=== PATIENT | female | born 1950 | race Hispanic/Latino ===

== ENCOUNTER 2017-08-17 09:03 | Emergency (ER) | payer MEDICARE, MEDICAID ==
[2017-08-17] MEDS ORDERED: Dexamethasone 4 mg/ml Vial ONE (09:37)
== END 2017-08-17 10:34 | disposition home or self-care (01) ==
LOC: NAV ERS 09:03
DX: J20.9 Acute bronchitis, unspecified (principal); B35.3 Tinea pedis; E11.9 Type 2 diabetes mellitus without complications; F32.9 Major depressive disorder, single episode, unspecified; J44.9 Chronic obstructive pulmonary disease, unspecified; Z87.891 Personal history of nicotine dependence; Z79.84 Long term (current) use of oral hypoglycemic drugs; Z79.52 Long term (current) use of systemic steroids; Z79.899 Other long term (current) drug therapy
CPT/HCPCS: 96372; J1100; J7620

== ENCOUNTER 2019-11-25 12:30 | Outpatient (CLI) | payer MEDICARE, MEDICAID ==
--- NOTE | 2019-11-25 12:44 | RAD ---
XR Chest Pa Lat STANDARD HISTORY: Cough and bronchitis COMPARISON: 08/03/2009 study. FINDINGS: Heart size appears slightly enlarged with atherosclerotic changes of the aorta. The lungs a re clear of any infiltrative process. There are arthritic changes of the spine. IMPRESSION: Mild cardiomegaly.
== END 2019-11-25 12:31 | disposition home or self-care (01) ==
LOC: NAV RAD 12:30
PROVIDERS: ATTEND Family Medicine
DX: J40 Bronchitis, not specified as acute or chronic (principal); I51.7 Cardiomegaly
CPT/HCPCS: 71046

== ENCOUNTER 2021-12-17 08:06 | Emergency (ER) | payer MEDICARE, OTHER ==
[2021-12-17 09:14] LABS: #Basophils 0.1 thou/uL (0.0-0.2); #Eosinphils 0.6 thou/uL (0.0-0.7); #Monocytes 0.6 thou/uL (0.11-0.59); #Neutrophils 4.1 thou/uL (1.40-6.50); %Basophils 0.8 % (0.0-1.0); %Eosinophils 8.2 % (0.0-10.0); %Lymphocytes 26.7 % (21.0-51.0); %Monocytes 8.3 % (0.0-10.0); %Neutrophils 56.1 % (42.0-75.0); Hemoglobin 13.7 g/dL (12.0-16.0); Mean Corpuscular HGB CONC 32.3 g/dL (32.0-36.0); Mean Corpuscular Hemoglobin 32.2 pg (27.0-31.0); Mean Corpuscular Volume 99.4 fL (78.0-98.0); Mean Platelet Volume 6.8 fL (7.4-10.4); Platelet Count 168 thou/uL (130-400); RBC Distribution Width 12.3 % (11.5-14.5); Red Blood Cell (RBC) Count 4.27 mill/uL (4.20-5.40); White Blood Cell (WBC) Count 7.3 thou/uL (4.8-10.8)
[2021-12-17 09:29] LABS: ALT (SGPT) 12 U/L (8-55); AST (SGOT) 23 U/L (5-34); Albumin 3.7 g/dL (3.4-4.8); Alkaline Phosphatase 81 U/L (40-110); Anion Gap 15 mmol/L (10-20); BUN (Urea Nitrogen) 18 mg/dL (9.8-20.1); Bilirubin, Total 0.5 mg/dL (0.2-1.2); Calc. Creatinine Clearance 0 mL/min (70-130); Calcium 9.3 mg/dL (7.8-10.44); Carbon Dioxide 21 mmol/L (23-31); Chloride 107 mmol/L (98-107); Globulin 3.6 g/dL (2.4-3.5); Glucose 115 mg/dL (83-110); Magnesium 1.8 mg/dL (1.6-2.6); Protein, Total 7.3 g/dL (5.8-8.1); Sodium 139 mmol/L (136-145)
[2021-12-17 09:31] LABS: Bilirubin Negative (Negative); Blood, Urine Negative (Negative); Clarity Clear (Clear); Glucose, Urine (Dipstick) Negative (Negative); Ketone, Urine Negative (Negative); Leukocyte Negative (Negative); Nitrite Negative (Negative); Protein, Urine (Dipstick) Negative (Neg-Trace); Specific Gravity, Urine 1.015 (1.005-1.030); Urobilinogen 0.2 mg/dL (Less than 2)
== END 2021-12-17 10:33 | disposition home or self-care (01) ==
LOC: NAV ERS 08:06
DX: N39.498 Other specified urinary incontinence (principal); R60.0 Localized edema; E11.9 Type 2 diabetes mellitus without complications; J44.9 Chronic obstructive pulmonary disease, unspecified; Z87.891 Personal history of nicotine dependence
CPT/HCPCS: 51701; 71045; 80053; 81003; 83735; 83880; 84484; 85025; 93005; 94760